=== PATIENT | female | born 1965 | race African-American/Black ===

== ENCOUNTER → 2016-07-19 | Outpatient (CLI) | payer OTHER ==
--- NOTE | 2016-07-19 09:25 | RAD ---
Radionuclide gastric imaging study, 07/19/2016: History: Chronic nausea and vomiting The study was performed utilizing a test meal radiolabeled with 2.2 mCi of technetium 99m sulfur colloid. The time to half emptying of the test meal from the patient's stomach was estimated at 45 minutes. A normal T1/2 is 60 minutes +/- 30 minutes. IMPRESSION: Normal gastric emptying time.
== END | disposition home or self-care (01) ==
LOC: NM 10:33
PROVIDERS: ATTEND Internal Medicine Gastroenterology
DX: R11.2 Nausea with vomiting, unspecified (principal)
CPT/HCPCS: 78264; A9541

== ENCOUNTER → 2017-02-28 | Outpatient (CLI) | payer OTHER ==
--- NOTE | 2017-02-28 17:14 | RAD ---
Pelvic ultrasound, 02/28/2017: History: Cyst on right ovary on outside CT study Transabdominal and transvaginal scans were obtained. The uterus is surgically absent. The left ovary was not visualized. The right ovary measures 3.7 x 2.6 x 3.6 cm. Its internal echo pattern is mildly heterogeneous. No discrete mass or cyst is identified. No free fluid is evident in the pelvis. IMPRESSION: 1. Status post hysterectomy. 2. Mildly prominent right ovary without evidence of a discrete mass or cyst. Correlation with the outside CT findings is suggested. Sonographic surveillance may be indicated to establish stability.
== END | disposition home or self-care (01) ==
LOC: US 15:12
DX: N83.201 Unspecified ovarian cyst, right side (principal); Z90.710 Acquired absence of both cervix and uterus
CPT/HCPCS: 76830; 76856

== ENCOUNTER → 2017-03-02 | Outpatient (CLI) | payer OTHER ==
[2017-03-02 17:14] LABS: CA 125 8.6 U/mL (0.0-38.1)
== END | disposition home or self-care (01) ==
LOC: LAB 09:02
DX: N83.209 Unspecified ovarian cyst, unspecified side (principal)
CPT/HCPCS: 36415; 82105; 82378; 83615; 84702; 86304